=== PATIENT | female | born 1990 | race Caucasian/White ===

== ENCOUNTER 2018-02-16 16:44 | Inpatient (IN) | END 2018-02-17 15:22 | disposition home or self-care (01) | DRG 419 ==

== ENCOUNTER 2018-11-08 10:07 | Day surgery (SDC) | payer OTHER ==
[~2018-11-08] VITALS: Ht 165.1 cm; Wt 120.5 kg
[2018-11-08 11:08] VITALS: Ht 165.1 cm; Wt 120.5 kg
[2018-11-08 11:18] VITALS: BP 149/95; PULSE 94; RESP 18
[2018-11-08] MEDS ORDERED: BIRTH CONTROL PO (11:19)
--- NOTE | 2018-11-08 11:35 | PREAC ---
Date/Time of Note Date/Time of Note DATE: 11/08/18 TIME: 11:34 Anesthesia Eval and Record Evaluation Time Pre-Procedure Interview DATE: 11/08/18 TIME: 11:34 Age 28 Sex female NPO: 8 hrs Preoperative diagnosis chronic diarrhea Planned procedure colonoscopy Past Medical History Past Medical History: Includes GI: Morbid obesity Surgery & Anesthesia Issues No known issue Meds Anticoagulation: No Beta Tosin within 24 hr: No Reason Beta Tosin not given: Pt. not on B-Tosin Reported Medications [ Control] No Conflict Check, PO DAILY 11/08/18 Meds reviewed: Yes Allergies Coded Allergies: Sulfa (Sulfonamide Antibiotics) (Verified Allergy, Unknown, 11/08/18) Allergies Reviewed: Yes Labs/Studies Labs Reviewed: Reviewed by anesthesiologist test: Negative Pre-procedure Exam Last vitals Vital Signs Date Temp Pulse Resp B/P (MAP) Pulse Ox O2 O2 Flow FiO2 Time Delivery Rate 11/08/18 97.0 94 18 149/95 97 Room Air 11:18 (113) Airway: Adequate mouth opening, Adequate thyromental dist Mallampati: Mallampati II Teeth: Normal Lung: Normal Heart: Normal ASA Physical Status ASA physical status: 3 Emergency: None Planned Anesthetic General/MAC: Mask Planned Pain Management Parenteral pain med Pre-operative Attestations Prior to commencing anesthesia and surgery, the patient was re-evaluated, there was verification of: *The patient's identity *The results of appropriate recent lab work and preoperative vital signs *The above evaluation not changing prior to induction *Anesthetic plan, risk benefits, alternative and complications discussed with patient/family; questions answered; patient/family understands, accepts and wishes to proceed. YAMILA RODRIGUES MD Nov 08, 2018 11:35
[2018-11-08] MEDS ORDERED: PROPOFOL 200 MG INJ ONE (11:36)
[2018-11-08] MEDS ORDERED: LIDOCAINE 2% (SDV) 5 ML INJ ONE (11:36)
[2018-11-08] MEDS ORDERED: PROPOFOL 40 ML ONE (11:36)
[2018-11-08] MEDS ORDERED: ONDANSETRON 4 MG INJ IV PRN (12:00)
[2018-11-08 12:22] VITALS: BP 160/80; PULSE 88; RESP 16
--- NOTE | 2018-11-08 12:57 | PAC ---
Date/Time of Note Date/Time of Note DATE: 11/08/18 TIME: 12:56 Post-Anesthesia Notes Post-Anesthesia Note Last documented vital signs Vital Signs Date Temp Pulse Resp B/P (MAP) Pulse Ox O2 O2 Flow FiO2 Time Delivery Rate 11/08/18 97.0 94 18 149/95 97 Room Air 11:18 (113) Activity: WNL Respiratory function: WNL Cardiovascular function: WNL Mental status: Baseline Pain reasonably controlled: Yes Hydration appropriate: Yes Nausea/Vomiting absent: Yes Comments BP: 140/68 HR: 90 RR; 15 T: 98 SaO2: 99% YAMILA RODRIGUES MD Nov 08, 2018 12:57
== END 2018-11-08 13:17 | disposition home or self-care (01) ==
LOC: GIL 10:07
PROVIDERS: ATTEND Internal Medicine Gastroenterology
DX: K64.8 Other hemorrhoids (principal)
CPT/HCPCS: 45380; 84703; 88305; Z7610